=== PATIENT | female | born 1995 | race Caucasian/White ===

== ENCOUNTER 2016-10-14 21:23 | Inpatient (IN) | payer OTHER ==
[~2016-10-14] VITALS: Ht 165.1 cm; Wt 50.0 kg
[2016-10-14] MEDS ORDERED: IPRATROPIUM (NEB) 0.5 MG/2.5 ML AMP INH STA (21:45)
[2016-10-14] MEDS ORDERED: LEVALBUTEROL (NEB) 1.25 MG/0.5 ML AMP INH STA (21:45)
--- NOTE | 2016-10-14 21:54 | ERA ---
ER Documentation Chief Complaint Date/Time DATE: 10/14/16 TIME: 21:53 Chief Complaint BILATERAL EXPIRATORY WHEEZING FOR A FEW DAYS GETTING WORSE. MOD DISTRESS HPI The patient is a 21-year-old female, presenting to the ER because of acute shortness of breath for 1 week intermittently, worse today. He has multiple nebulizer treatment at home without relief therefore she came to the ER. He is using Advair and albuterol inhaler. She has intermittent congestion, cough for the last week, subjective fever, denies syncope, near syncope, neck pain, chest pain, abdominal pain, vomiting, dysuria, diarrhea, constipation. She does not smoke, drinks socially Past medical history: Asthma Past surgical history: None ROS All systems reviewed and are negative except as per history of present illness. Medications Home Meds Reported Medications Montelukast Sodium* (Montelukast Sodium*) 10 Mg Tablet, 10 MG PO DAILY, #30 TAB 10/14/16 Albuterol Sulfate* (Albuterol Sulfate* Neb) 0.083%-3 Ml Neb, MG NEB Q4H Y for PRN, #30 VIAL 10/14/16 Albuterol Sulfate* (Proair HFA*) 8.5 Gm Hfa.aer.ad, 2 PUFF INH Q4H Y for WHEEZING AND SOB, #1 INHALER 10/14/16 Salmeterol Xinaf/Fluticasone* (Advair*) 250-50 Diskus Inhaler, 1 INH INHALATION BID, #1 INHALER 10/14/16 Drospir-Eth Estra-Levomefol Ca (Beyaz 28) 1 Each Tablet, 1 TAB PO DAILY, TAB 10/14/16 Allergies Allergies: Uncoded Allergies: CATS (Allergy, Unknown, 10/14/16) Physical Exam Vitals Vital Signs Date Time Temp Pulse Resp B/P Pulse Ox O2 Delivery O2 Flow Rate FiO2 10/14/16 23:00 110 20 118/74 100 10/14/16 21:50 126 26 99 21 10/14/16 21:32 99.9 135 24 138/76 99 Physical Exam Const: No acute distress. Head: Atraumatic. Eyes: Normal Conjunctiva. ENT: Normal External Ears, Nose and Mouth. Neck: Full range of motion. No meningismus. Resp: Bilateral expiratory wheezes, tachypnea Cardio: Regular tachycardic Abd: Soft, non distended, normal bowel sounds, non tender. Skin: No petechiae or rashes. Back: No midline or flank tenderness. Ext: No cyanosis, or edema. Neur: Awake and alert. No focal deficit Psych: Normal Mood and Affect. Result Diagram: 10/14/16221010/14/162210 Results 24 hrs Laboratory Tests Test 10/14/16 22:11 10/14/16 23:40 Activated Partial Thromboplast Time 24.9Sec Alanine Aminotransferase (ALT/SGPT) 25IU/L Albumin 4.3g/dl Albumin/Globulin Ratio 1.38 Alkaline Phosphatase 66IU/L Anion Gap 21 Aspartate Amino Transf (AST/SGOT) 22IU/L Basophils # 0.010^3/ul Basophils % 0.4% Blood Urea Nitrogen 11mg/dl Calcium Level 9.6mg/dl Carbon Dioxide Level 20mmol/L Chloride Level 104mmol/L Creatinine 0.73mg/dl Direct Bilirubin 0.00mg/dl Eosinophils # 0.310^3/ul Eosinophils % 2.7% Globulin 3.10g/dl Glucose Level 124mg/dl Hematocrit 36.5% Hemoglobin 12.7g/dl INR International Normalized Ratio 0.93 Indirect Bilirubin 0.2mg/dl Lactic Acid Level 2.8mmol/L 4.1mmol/L Lymphocytes # 1.110^3/ul Lymphocytes % 10.5% Mean Corpuscular Hemoglobin 31.6pg Mean Corpuscular Hemoglobin Concent 34.8g/dl Mean Corpuscular Volume 90.8fl Mean Platelet Volume 8.7fl Monocytes # 0.810^3/ul Monocytes % 7.9% Neutrophils # 8.210^3/ul Neutrophils % 78.1% Nucleated Red Blood Cells # 0.010^3/ul Nucleated Red Blood Cells % 0.0/100WBC Platelet Count 14195^3/UL Potassium Level 3.0mmol/L Prothrombin Time 12.5Sec Prothrombin Time Ratio 1.0 Red Blood Count 4.0210^6/ul Red Cell Distribution Width 12.4% Sodium Level 142mmol/L Total Bilirubin 0.2mg/dl Total Protein 7.4g/dl Troponin I < 0.012ng/ml White Blood Count 10.510^3/ul Current Medications Medications (Trade) Dose Ordered Sig/Mirian Route PRN Reason Start Time Stop Time Status Last Admin Dose Admin Sodium Chloride 1,550 ml @ 1,550 mls/hr BOLUS X1 ONCE IV 10/14/16 22:00 10/14/16 22:59 DC 10/14/16 22:18 Magnesium Sulfate (Magnesium Sulfate 2 Gm/50 ml) 50 ml @ 25 mls/hr ONCE ONCE IVPB 10/14/16 22:00 10/14/16 23:59 DC 10/14/16 22:19 Methylprednisolone Sodium Succinate (Solu-Medrol) 125 mg ONCE ONCE IV 10/14/16 22:00 10/14/16 22:01 DC 10/14/16 22:18 Levalbuterol (Xopenex Neb) 5 mg ONCE STAT INH 10/14/16 21:45 10/14/16 21:48 DC 10/14/16 21:50 Ipratropium [place] 1.5 mg 1.5 mg ONCE STAT INH 10/14/16 21:45 10/14/16 21:49 DC 10/14/16 21:50 Sodium Chloride (NS) 1,000 ml @ 1,000 mls/hr Q1H ONCE IV 10/15/16 00:00 10/15/16 00:59 DC 10/15/16 00:09 Potassium Chloride (Klor-Con 20) 40 meq ONCE ONCE PO 10/14/16 23:34 10/14/16 23:35 DC 10/15/16 00:09 Potassium Chloride 20 meq 20 meq ONCE ONCE PO 10/14/16 23:34 10/14/16 23:35 DC 10/15/16 00:09 Levofloxacin/ Dextrose (Levaquin 750 Mg/ D5W 150 ml (Pmx)) 150 ml @ 100 mls/hr ONCE ONCE IVPB 10/15/16 01:00 10/15/16 02:29 10/15/16 00:56 Procedures/[place] [id number] Radiology Main Line: [phone] DIAGNOSTIC IMAGING REPORT Patient: LEILA SANCHEZ : 1995 Age: 21 Sex: F MR #: [id number] DOS: 10/14/16 2145 Ordering MD: MIREILLE DIMAS MD Location: E/R Room/Bed: PROCEDURE: XR Chest. CLINICAL INDICATION: Possible sepsis. TECHNIQUE: Portable AP view of the chest was obtained. COMPARISON: None. FINDINGS: The cardiomediastinal silhouette is within normal limits. The lungs are clear. There is no evidence for pleural effusion, pneumothorax or pulmonary vascular congestion. The osseous structures are intact with no evidence for acute abnormality. RPTAT:HJJR IMPRESSION: No evidence for acute intrathoracic pathology. Beto Silva Physician Date Time Electronically viewed and signed by Physician Mac on 10/14/2016 22:19 JR/ CC: MIREILLE DIMAS MD MEDICAL MAKING DECISION: The patient is 21-year-old female, presenting with acute severe asthma exacerbation, acute hypokalemia. She was treated with 3 L normal saline over a couple hours for acute dehydration, magnesium sulfate 2 g IV, Solu-Medrol 125 mg IV, Xopenex 5 mg and Atrovent 1.5 mg nebulized over one hour, Levaquin IV, potassium chloride 60 mEq p.o. with good response. On multiple reevaluation she felt better, repeat lung exam still show mild expiratory wheezes bilaterally, she was therefore treated with Xopenex 5 mg nebulizer over one hour. The differential diagnoses considered include but are not limited to asthma, COPD, pneumonia, pulmonary embolus, pleural effusion, congestive heart failure. Lactic acid level was 2.8 then elevated to 4.1, however I do not suspect septic shock or sever sepsis. Urinalysis is pending Critical Care: Time: 35 minutes excluding all billable procedures. Treatments/Evaluations: Close monitoring and treatment of unstable vital signs, cardiorespiratory, and neurologic status, while maintaining tight balance of fluid, respiratory, and cardiac interventions. Departure Diagnosis: Primary Impression: Asthma with acute exacerbation in adult Additional Impression: Hypokalemia Condition: Stable Comments I discussed the findings with the patient. I discussed the patient with the hospitalist Dr. Parrish who was made aware of the lab, the treatment, the patient condition. The patient is admitted to telemetry at 1 AM MIREILLE DIMAS MD Oct 14, 2016 21:54
[2016-10-14] MEDS ORDERED: SOD CHLORIDE 0.9% IV ONE (22:00)
[2016-10-14] MEDS ORDERED: MAGNESIUM SULFATE 2 GM/50 ML 50 ML IVPB ONE (22:00)
[2016-10-14] MEDS ORDERED: METHYLPREDNISOLONE 125 MG INJ IV ONE (22:00)
--- NOTE | 2016-10-14 22:19 | RADRPT ---
PROCEDURE: XR Chest. CLINICAL INDICATION: Possible sepsis. TECHNIQUE: Portable AP view of the chest was obtained. COMPARISON: None. FINDINGS: The cardiomediastinal silhouette is within normal limits. The lungs are clear. There is no evidenc e for pleural effusion, pneumothorax or pulmonary vascular congestion. The osseous structures are i ntact with no evidence for acute abnormality. RPTAT:HJJR IMPRESSION: No evidence for acute intrathoracic pathology. Physician Mac Date Time Electronically viewed and signed by Beto Silva Physician on 10/14/2016 22:19 JR/
[2016-10-14 22:26] LABS: ADD SCAN DIFF NO
[2016-10-14 22:36] LABS: BASOPHILS % 0.4 % (0.0-2.0); EOSINOPHILS # 0.3 10^3/ul (0.0-0.5); EOSINOPHILS % 2.7 % (0.0-7.0); HEMATOCRIT 36.5 % (37.0-47.0); HEMOGLOBIN 12.7 g/dl (12.0-16.0); LYMPHOCYTES # 1.1 10^3/ul (0.8-2.9); LYMPHOCYTES % 10.5 % (15.0-51.0); MEAN CORPUSCULAR HEMOGLOBIN 31.6 pg (29.0-33.0); MEAN CORPUSCULAR HGB CONC 34.8 g/dl (32.0-37.0); MEAN CORPUSCULAR VOLUME 90.8 fl (82.0-101.0); MEAN PLATELET VOLUME 8.7 fl (7.4-10.4); MONOCYTE # 0.8 10^3/ul (0.3-0.9); MONOCYTES % 7.9 % (0.0-11.0); NEUTROPHIL # 8.2 10^3/ul (1.6-7.5); NEUTROPHILS % 78.1 % (39.0-77.0); PLATELET COUNT 259 10^3/UL (140-415); RED BLOOD COUNT 4.02 10^6/ul (4.20-5.40); RED CELL DISTRIBUTION WIDTH 12.4 % (11.5-14.5); WHITE BLOOD COUNT 10.5 10^3/ul (4.8-10.8)
[2016-10-14 22:40] LABS: ALBUMIN 4.3 g/dl (3.3-4.9); CHLORIDE 104 mmol/L (97-110)
[2016-10-14 22:41] LABS: INR 0.93; PROTIME 12.5 Sec (12.2-14.2); SODIUM 142 mmol/L (135-144)
[2016-10-14 22:42] LABS: PARTIAL THROMBOPLASTIN TIME 24.9 Sec (25.0-35.0)
[2016-10-14 22:43] LABS: ALBUMIN/GLOBULIN RATIO 1.38; ALKALINE PHOSPHATASE 66 IU/L (42-121); ANION GAP 21 (8-16); ASPARTATE AMINO TRANSFERASE 22 IU/L (15-46); BILIRUBIN,INDIRECT 0.2 mg/dl (0-1.1); BILIRUBIN,TOTAL 0.2 mg/dl (0.2-1.3); CARBON DIOXIDE 20 mmol/L (21-31); CREATININE 0.73 mg/dl (0.44-1.00); TOTAL PROTEIN 7.4 g/dl (6.1-8.1)
[2016-10-14 22:44] LABS: ALANINE AMINOTRANSFERASE 25 IU/L (13-69); BLOOD UREA NITROGEN 11 mg/dl (7-20); CALCIUM 9.6 mg/dl (8.4-10.2); GLUCOSE 124 mg/dl (70-220)
[2016-10-14] MEDS ORDERED: DROS1TAB2 PO (22:48)
[2016-10-14] MEDS ORDERED: ALBU2.5V3 NEB (22:49)
[2016-10-14] MEDS ORDERED: ALBU8.5H3 INH (22:49)
[2016-10-14] MEDS ORDERED: ADV25050 INHALATION (22:49)
[2016-10-14] MEDS ORDERED: MONT10TA24 PO (22:51)
[2016-10-14 22:55] LABS: TROPONIN-I < 0.012 ng/ml (0.00-0.12)
[2016-10-14] MEDS ORDERED: POTASSIUM CHLORIDE (SR) 20 MEQ TAB PO ONE ×2 (23:34)
[2016-10-15] VITALS (10 sets, daily range): BP systolic 98–118; BP diastolic 56–62; PULSE 93–121; RESP 17–20; Ht 165.1 cm; Wt 50.0 kg
[2016-10-15] MEDS ORDERED: SOD CHLORIDE 0.9% 1,000 ML IV ONE
[2016-10-15] MEDS ORDERED: LEVOFLOXACIN 750MG/D5W (PMX) 150 ML IVPB ONE (01:00)
[2016-10-15] MEDS ORDERED: LEVALBUTEROL (NEB) 1.25 MG/0.5 ML AMP INH STA (01:07)
[2016-10-15 03:19] LABS: ADD UMIC YES; URINE BILIRUBIN (Dip) NEGATIVE (NEGATIVE); URINE BLOOD (Dip) TRACE (NEGATIVE); URINE COLOR LT. YELLOW (YELLOW); URINE GLUCOSE (Dip) NEGATIVE (NEGATIVE); URINE KETONES (Dip) NEGATIVE (NEGATIVE); URINE LEUKOCYTE ESTERASE (Dip) NEGATIVE (NEGATIVE); URINE NITRITE (Dip) NEGATIVE (NEGATIVE); URINE TOTAL PROTEIN (Dip) NEGATIVE (NEGATIVE); URINE UROBILINOGEN (Dip) 0.2 E.U./dL (0.1-1.0)
[2016-10-15 03:25] LABS: SQUAMOUS EPITHELIAL CELL,UR RARE; URINE RBCS 0-2 /HPF (0)
[2016-10-15] MEDS ORDERED: SOD CHLORIDE 0.9% 500 ML IV ONE (03:30)
[2016-10-15] MEDS: LEVALBUTEROL (NEB) 0.63 MG/3 ML AMP HHN SCH ×3 (05:27→12:29)
[2016-10-15 06:53] LABS: ADD SCAN DIFF NO
[2016-10-15 06:55] LABS: ABNORMAL IP MESSAGE 1; BASOPHILS % 0.2 % (0.0-2.0); HEMATOCRIT 34.6 % (37.0-47.0); HEMOGLOBIN 11.6 g/dl (12.0-16.0); LYMPHOCYTES # 0.3 10^3/ul (0.8-2.9); LYMPHOCYTES % 5.8 % (15.0-51.0); MEAN CORPUSCULAR HEMOGLOBIN 31.1 pg (29.0-33.0); MEAN CORPUSCULAR HGB CONC 33.5 g/dl (32.0-37.0); MEAN CORPUSCULAR VOLUME 92.8 fl (82.0-101.0); MEAN PLATELET VOLUME 8.7 fl (7.4-10.4); MONOCYTE # 0.1 10^3/ul (0.3-0.9); MONOCYTES % 1.7 % (0.0-11.0); NEUTROPHIL # 4.9 10^3/ul (1.6-7.5); NEUTROPHILS % 92.1 % (39.0-77.0); PLATELET COUNT 246 10^3/UL (140-415); RED BLOOD COUNT 3.73 10^6/ul (4.20-5.40); WHITE BLOOD COUNT 5.4 10^3/ul (4.8-10.8)
[2016-10-15 07:09] LABS: ALBUMIN 3.9 g/dl (3.3-4.9); POTASSIUM 4.4 mmol/L (3.5-5.1)
[2016-10-15 07:11] LABS: CREATININE 0.56 mg/dl (0.44-1.00)
[2016-10-15 07:12] LABS: ALBUMIN/GLOBULIN RATIO 1.18; CALCIUM 8.8 mg/dl (8.4-10.2); PHOSPHORUS 1.3 mg/dl (2.5-4.9); TOTAL PROTEIN 7.2 g/dl (6.1-8.1)
[2016-10-15 07:43] LABS: THYROID STIMULATING HORMONE 1.27 MIU/L (0.465-4.680)
[2016-10-15] MEDS: IPRATROPIUM (NEB) 0.5 MG/2.5 ML AMP HHN PRN ×2 (07:54→12:29)
[2016-10-15] MEDS ORDERED: METHYLPREDNISOLONE 125 MG INJ IV SCH (09:00)
--- NOTE | 2016-10-15 11:31 | HP ---
Date/Time of Note Date/Time of Note DATE: 10/15/16 TIME: 11:30 Assessment/Plan Lines/Catheters IV [facility]from [facility] Saline Lock Urinary Cath still in place: No Assessment/Plan Assessment/Plan 1. Asthma Exacerbation - Oxygen, bronchodilators, steroid DVT ppx: SCDs HPI/ROS Admit Date/Time Admit Date/Time Oct 15, 2016 at 01:08 Hx of Present Illness The patient is a 21-year-old female, presenting to the ER because of acute shortness of breath for 1 week intermittently, worse today. He has multiple nebulizer treatment at home without relief therefore she came to the ER. He is using Advair and albuterol inhaler. She has intermittent congestion, cough for the last week, subjective fever, denies syncope, near syncope, neck pain, chest pain, abdominal pain, vomiting, dysuria, diarrhea, constipation. PMH/Family/Social Social History Smoking Status: Never smoker Exam/Review of Systems Vital Signs Vitals Vital Signs Date Time Temp Pulse Resp B/P Pulse Ox O2 Delivery O2 Flow Rate FiO2 10/15/16 11:27 98.8 86 17 98/56 94 10/15/16 05:27 21 10/15/16 04:00 Room Air Labs Result Diagram: 10/15/16 0622 10/15/16 0622 Medications Medications Current Medications Methylprednisolone Sodium Succinate (Solu-Medrol) 60 mg DAILY IV Last administered on 10/15/16t 08:35; Admin Dose 60 MG; Start 10/15/16 at 09:00 Influenza Virus Vaccine (Fluzone) 0.5 ml ONCE ONCE IM* ; Start 10/17/16 at 09:00 ; Stop 10/17/16 at 09:01 RADHA BERRY MD Oct 15, 2016 11:31
[2016-10-15] MEDS ORDERED: MONT10TA24 PO (13:09)
[2016-10-15] MEDS ORDERED: XOP15INH INH (13:09)
[2016-10-15] MEDS ORDERED: LEVA0.634 INHALATION (13:09)
[2016-10-15] MEDS ORDERED: ADV25050 INHALATION (13:09)
[2016-10-15] MEDS ORDERED: PRED10TA PO (13:09)
--- NOTE | 2016-10-15 13:16 | PDOCDIS ---
Discharge Instructions DIAGNOSIS Discharge Diagnosis: 1. asthma exacerbation CONDITION Patient Condition: Stable HOME CARE INSTRUCTIONS: Special Diet: Regular ACTIVITY: Activity Restrictions: Slowly Increase Activity Rest between Activity FOLLOW UP/APPOINTMENTS Appointments 1. Follow-up with your loan underwriter within 1 week OTHER ORDERS: Other Orders: 1. Call your pulmonology severe worsening chest pain or shortness of breath. Take your medications as prescribed ROBIN VALDEZ Oct 15, 2016 13:16
[2016-10-15] MEDS ORDERED: MONTELUKAST 10 MG TAB PO SCH (21:00)
[2016-10-15] MEDS ORDERED: SALMETEROL/FLUTICASONE 250/50 INHA INH SCH (21:00)
[2016-10-17] MEDS ORDERED: INFLUENZA VIRUS VACCINE 0.5 ML (DISPENSING) IM* ONE (09:00)
--- NOTE | 2016-10-18 23:33 | DS ---
DATE OF ADMISSION: 10/15/2016 DATE OF DISCHARGE: 10/15/2016 DISCHARGE DIAGNOSIS: Acute asthma exacerbation. HOSPITAL COURSE: This is a 21-year-old female with history of asthma who came to [facility] due to reports of 1 week of shortness of breath in duration. She does report that her br eathing had progressively gotten worse and, despite the use of her nebulizers at home and home inhal ers, she still had some shortness of breath. Of note, the patient had recently moved from [place] to [place]. She did state that her allergies may have been a factor in her asthma exacerbation. She did report that she was scheduled to follow up with regional refrigerated cdl truck driver specialist as well as pulmonolog ist as an outpatient. The patient was provided with bronchodilators, O2 supplement, as well as ster oid treatments. She did have significant positive response with these treatments and she did report that her breathing. She was still noted with some bronchospasm on the date of her discharge, but l ikely this is chronic secondary to her underlying history of asthma. Symptomatically, the patient d id improve and clinically she did look stable. The patient able to ambulate with no difficulty with breathing. During her course of stay, she did improve. She was advised to take medication as pres cribed and follow up with her outpatient regional refrigerated cdl truck driver as well as player piano technician. The plan of care was d iscussed with the patient and patient did verbalize her understanding. On the day of discharge, the patient was in stable condition. Discharge physical exam and vital signs were stable. CONDITION: Stable. DISCHARGE PLAN: 1. Diet is regular. 2. The patient to follow up with player piano technician within a week. 3. The patient to call player piano technician if she has significant worsening of chest pain or shortness of breath, and to take her medications as prescribed and to slowly increase activity and to rest betwe en activity. DISCHARGE MEDICATIONS: 1. Xopenex 0.63 mg inhalation q.4 hours as needed for shortness of breath. 2. Prednisone taper. 3. Singulair 10 mg p.o. daily. 4. Advair 250/50 one puff b.i.d. DISCHARGE PROCESS TIME: 40 minutes. Discussed plan of care with Dr. Brady. Dictated By: ROBIN KELLEY/ALISSA Conf#: [id number] DID#: [id number] CC: RADHA BERRY MD;*[facility]*
== END 2016-10-15 16:26 | disposition home or self-care (01) | DRG 203 ==
LOC: E/R 21:23 → TEL 10-15 01:08
PROVIDERS: ADMIT Internal Medicine; ATTEND Internal Medicine
DX: J45.901 Unspecified asthma with (acute) exacerbation (principal); E87.6 Hypokalemia
CPT/HCPCS: 36415; 71010; 80053; 81001; 81003; 83605; 83735; 84100; 84439; 84443; 84484; 85025; 85610; 85730; 87040; 87086; 87400; 93005; 94640; 94644; 94645; 94664; 96374; 96375; 96376; J1956; J2930; J3475; J7030; J7040